=== PATIENT | male | born 1985 | race Hispanic/Latino ===

== ENCOUNTER 2020-03-12 23:09 | Emergency (ER) | payer OTHER ==
[2020-03-12] MEDS ORDERED: IBUPROFEN 400 MG TABLET ONE (23:39)
[2020-03-12] MEDS ORDERED: IBUPROFEN 200 MG TAB ONE (23:40)
[2020-03-12] MEDS ORDERED: ACETAMINOPHEN EXTRA STRENGTH 500 MG TABLET ONE (23:40)
== END 2020-03-13 01:07 | disposition home or self-care (01) ==
LOC: EDH 23:09
DX: J06.9 Acute upper respiratory infection, unspecified (principal); B34.9 Viral infection, unspecified; Z20.828 Contact with and (suspected) exposure to other viral communicable diseases
CPT/HCPCS: 87426; 87804 ×2; 99283; U0003